=== PATIENT | male | born 1985 | race Caucasian/White ===

== ENCOUNTER 2018-08-25 14:25 | Inpatient (IN) | payer OTHER ==
[2018-08-25] MEDS ORDERED: NS 1,000 ML IV ONE (15:04)
--- NOTE | 2018-08-25 15:15 | EDPHY ---
HPI/HX/ROS/PE/MDM Narrative: CLINICAL IMPRESSION: Abdominal pain, nausea, acute pancreatitis ASSESSMENT/PLAN: Patient is a 32-year-old man with a significant history of alcoholic induced pancreatitis, anxiety, depression and hyperlipidemia who presents today with epigastric pain, similar to previous episodes of acute pancreatitis. Patient is afebrile, in mild distress however not toxic appearing. His abdomen was soft with tenderness in the epigastrium without rebound or guarding; no peritoneal signs or evidence of surgical abdomen. CBC revealed mild leukocytosis , his vital signs were reviewed and he was mildly tachycardic on arrival however do not suspect sepsis or serious bacterial illness. BMP revealed no significant metabolic abnormality or evidence of acute kidney injury. Lipase and hepatic panel revealed elevated lipase at 1700 And mildly elevated ALT and AST consistent with alcohol use. History and physical examination is most consistent with acute pancreatitis. There were no clinical findings to suggest other etiologies to include acute appendicitis, cholecystitis, kidney stone, bowel obstruction, ACS, perforated viscus, diverticulitis, testicular torsion, epididymitis or additional emergent intra-abdominal process. He was given IV fluids, Zofran and Dilaudid with improvement of his symptoms. On repeat examination the patient is much more comfortable appearing, his abdomen remained soft with mild tenderness in the epigastrium, no evidence of a surgical abdomen. The patient will be admitted to the hospitalist service for further observation and management, I spoke directly to Dr. Samuel who will be the admitting physician. The patient remained hemodynamically stable and pain controlled while in the ED. DIFFERENTIAL DX: Abdominal pain including but not limited to appendicitis, cholecystitis, gastritis and urinary tract infection. ED PROCEDURES: None ED COURSE: 3:25 p.m.: Case discussed with Dr. Juárez CHIEF COMPLAINT: Abdominal pain, nausea HPI: Patient is a 32-year-old man with significant history of alcohol-induced pancreatitis who presents with epigastric pain similar to episodes that he has had in the past. Patient reports last evening at approximately 11:00 p.m. He started to develop some epigastric abdominal pain, it has been sharp and constant. Patient does get a little relief when he bends forward. Patient with significant history of 2 admissions for alcohol-induced pancreatitis, last 1 this past March. Patient has been drinking however reportedly minimally and last 2 days prior. Denies any drug use. He denies any fevers, chills, chest pain, urinary symptoms or change in bowel habits. He has had no testicular pain or swelling. He does have constant low-grade nausea however has had no vomiting. Feels that when the pain is most intense it takes his breath away. PMH: Pancreatitis, anxiety, depression and hyperlipidemia Pertinent Past Surgical History: No history of abdominal surgeries Family History: Noncontributory Social History: Occasional EtOH, denies illicit drug use. REVIEW OF SYSTEMS: All other systems negative Constitutional: Decreased appetite: No fever, no chills. Eyes: No discharge, vision change ENT: No sore throat, congestion, ear pain. Cardiovascular: No chest pain, no palpitations. Respiratory: No cough, no shortness of breath. Gastrointestinal: Nausea, abdominal pain; No vomiting, diarrhea. Genitourinary: No hematuria, dysuria, flank pain, pelvic pain Musculoskeletal: No back pain, joint swelling, joint pain, myalgias. Skin: No rashes, color change. Neurological: No headache, dizziness, weakness. PHYSICAL EXAM: General Appearance: Alert, oriented, appropriate, cooperative, NAD, well hydrated, non-toxic appearing, VSS, no hypoxia. HEENT: TMs are clear bilaterally no perforation or FB, no injection, no evidence of serous or mucopurulent otitis. Oropharynx clear is no erythema or exudates, no tonsillar hypertrophy or asymmetry. Dentition without abnormality. Eyes: PERRLA, no acute vision change, nystagmus, swelling, discharge, pain or photosensitivity. Conjunctiva pink, no pallor or injection Neck: Supple, nontender, no lymphadenopathy, no midline pain, FROM, no meningismus. Respiratory: There are no retractions, lungs are clear to auscultation. Cardiac: Regular rate and rhythm, no murmurs or gallops. Gastrointestinal: Patient's abdomen is soft and nondistended, he is tender in the epigastrium without rebound or guarding. Bowel sounds are present. No masses/hernia, no rigidity, guarding or focal peritoneal findings. Neurological: Alert and oriented x 3, CN 2-12 grossly intact, normal gait no ataxia, DTR's intact, normal sensation and strength Skin: Warm, dry, no rashes, no nodules on palpation. Musculoskeletal: Extremities are symmetrical, full range of motion, no tenderness, deformity, swelling, or erythema. Psychiatric: Patient is oriented X 3, there is no agitation. MEDICAL DECISION MAKING: Patient was seen independently. Secondary supervising physician at time of evaluation was Dr. Juárez. Diagnosis: Acute pancreatitis. New, requires workup Summary: See Assessment and Plan for summary of ED visit Clinical lab tests: ordered / reviewed. Independent visualization of images, tracing, or specimens: Yes. Decision to obtain medical records or history from someone other than the patient: None available Review / Summarize previous medical records: None available Discussed patient with another provider: Yes, Dr. Juárez and Dr. Samuel Patient Progress: Improved. (Yolie Marks) ED Course: This patient was seen and examined by me. He presents with epigastric pain and nausea, with an elevated lipase. Clinical presentation consistent with acute pancreatitis. Abdominal exam is soft, with mild epigastric tenderness and no peritoneal signs. I agree with Janelle's assessment and plan. (Ester Juárez) MDM: Differential diagnosis includes though it is not limited to appendicitis, cholecystitis, diverticulitis, pyelonephritis, bowel perforation, small bowel obstruction. (Ester Juárez) - Data Points Laboratory Results: Laboratory Results 08/25/18 15:05 08/25/18 15:05 08/25/18 08/25/18 15:05 15:05 WBC 11.44 10^3/uL H 10^3/uL (3.80-9.50) RBC 5.19 10^6/uL 10^6/uL (4.40-6.38) Hgb 17.0 g/dL g/dL (13.7-17.5) Hct 47.5 % % (40.0-51.0) MCV 91.5 fL fL (81.5-99.8) MCH 32.8 pg pg (27.9-34.1) MCHC 35.8 g/dL g/dL (32.4-36.7) RDW 11.9 % % (11.5-15.2) Plt Count 241 10^3/uL 10^3/uL (150-400) MPV 8.3 fL L fL (8.7-11.7) Neut % (Auto) 78.0 % H % (39.3-74.2) Lymph % (Auto) 12.7 % L % (15.0-45.0) [place] % (Auto) 8.4 % % (4.5-13.0) Eos % (Auto) 0.1 % L % (0.6-7.6) Baso % (Auto) 0.5 % % (0.3-1.7) Nucleat RBC Rel Count 0.0 % % (0.0-0.2) Absolute Neuts (auto) 8.92 10^3/uL H 10^3/uL (1.70-6.50) Absolute Lymphs (auto) 1.45 10^3/uL 10^3/uL (1.00-3.00) Absolute Monos (auto) 0.96 10^3/uL H 10^3/uL (0.30-0.80) Absolute Eos (auto) 0.01 10^3/uL L 10^3/uL (0.03-0.40) Absolute Basos (auto) 0.06 10^3/uL 10^3/uL (0.02-0.10) Absolute Nucleated RBC 0.00 10^3/uL 10^3/uL (0-0.01) Immature Gran % 0.3 % % (0.0-1.1) Immature Gran # 0.04 10^3/uL 10^3/uL (0.00-0.10) Sodium 138 mEq/L mEq/L (135-145) Potassium 3.9 mEq/L mEq/L (3.5-5.2) Chloride 103 mEq/L mEq/L (97-110) Carbon Dioxide 23 mEq/l mEq/l (22-31) Anion Gap 12 mEq/L mEq/L (6-14) BUN 12 mg/dL mg/dL (7-23) Creatinine 0.9 mg/dL mg/dL (0.7-1.3) Estimated GFR > 60 Glucose 85 mg/dL mg/dL (70-100) Calcium 9.5 mg/dL mg/dL (8.5-10.4) Total Bilirubin 0.8 mg/dL mg/dL (0.1-1.4) Conjugated Bilirubin 0.3 mg/dL mg/dL (0.0-0.5) Unconjugated Bilirubin 0.5 mg/dL mg/dL (0.0-1.1) AST 91 IU/L H IU/L (17-59) ALT 104 IU/L H IU/L (21-72) Alkaline Phosphatase 89 IU/L IU/L (38-126) Total Protein 7.6 g/dL g/dL (6.3-8.2) Albumin 4.7 g/dL g/dL (3.5-5.0) Lipase 1716 IU/L H IU/L (23-300) Medications Given: Ondansetron HCl (Zofran) 4 mg IVP Q4 PRN PRN Reason: Nausea/Vomiting, Can't Take PO Stop: 02/21/19 15:19 Last Admin: 08/25/18 15:25 Dose: 4 mg Discontinued Medications Hydromorphone HCl (Dilaudid) 0.5 mg IVP EDNOW ONE Stop: 08/25/18 15:21 Last Admin: 08/25/18 15:25 Dose: 0.5 mg Hydromorphone HCl (Dilaudid) 0.5 mg IVP ONCE ONE Stop: 08/25/18 15:54 Last Admin: 08/25/18 15:55 Dose: 0.5 mg Sodium Chloride (Ns) 1,000 mls @ 0 mls/hr IV ONCE ONE PRN Reason: Wide Open Stop: 08/25/18 15:05 Last Admin: 08/25/18 15:25 Dose: 1,000 mls General Time Seen by Provider: 08/25/18 15:01 Initial Vital Signs: Initial Vital Signs Temperature (C) 97.0 C H 08/25/18 14:30 Heart Rate 104 H 08/25/18 14:30 Respiratory Rate 18 08/25/18 14:30 Blood Pressure 133/89 H 08/25/18 14:30 O2 Sat (%) 97 08/25/18 14:30 O2 Delivery Mode Room Air Allergies/Adverse Reactions: No Known Allergies Allergy (Verified 08/25/18 17:00) Home Medications: Medication Instructions Recorded ARIPiprazole [Abilify 10 mg (*)] 15 mg PO DAILY@182908/25/18 Atorvastatin Calcium [Lipitor 20 20 mg PO DAILY@182908/25/18 mg (*)] Gabapentin [Neurontin 100 MG (*)] 100 mg PO BID@08/25/18 Lisdexamfetamine Dimesylate 60 mg PO DAILY 08/25/18 [Vyvanse] Metoprolol Tartrate [Lopressor 25 25 mg PO BID@,182908/25/18 mg (*)] Mirtazapine [Remeron soltab 15 mg 15 mg PO DAILY@182908/25/18 (*)] buPROPion XL [Wellbutrin Xl] 150 mg PO DAILY 08/25/18 lamoTRIgine [LamICTAL 100 MG (*)] 200 mg PO DAILY@182908/25/18 Departure - Departure Disposition: [facility]
[2018-08-25] MEDS ORDERED: HYDROmorphONE/DILAUDID 2 MG/ML INJ IVP ONE (15:20)
[2018-08-25] MEDS ORDERED: ONDANSETRON 4 MG/2 ML VIAL IVP PRN ×2 (15:20→16:41)
[2018-08-25 15:23] LABS: PLATELET COUNT 241 10^3/uL (150-400)
[2018-08-25] MEDS ORDERED: HYDROmorphONE/DILAUDID 1 MG/ML INJ IVP ONE (15:53)
[2018-08-25] MEDS ORDERED: ACETAMINOPHEN 325 MG TAB PO PRN (16:41)
[2018-08-25] MEDS ORDERED: fentaNYL 100 MCG/2 ML INJ IVP ONE (16:42)
--- NOTE | 2018-08-25 17:01 | PDGENHP ---
<Marion Thakur - Last Filed: 08/25/18 19:05> History and Physical - Chief Complaint Epigastric pain - History of Present Illness 32 y/o male presents with epigastric pain that he reports is similar to what he experienced with his past pancreatitis. He reports drinking heavily (8-9 beers ) Thursday night. He did not drink yesterday and late yesterday night, he reports the onset of epigastric pain with acid reflux. He had difficulty sleeping and by this morning, the pain had worsened to be 10/10 pain. Endorses nausea, unable to eat. Denies vomiting, fevers, chills, diarrhea. Endorses BUQ tenderness, no guarding, no rebound. Lipase 1716, AST/ALT: 91/104. He is being admitted to obs for further monitoring of acute pancreatitis. Past Medical/Surgery History 1. Hx of pancreatitis (first one August 2017, second one March 2018; etoh induced pancreatitis) 2. Anxiety 3. Depression 4. Hyperlipidemia 5. Hypertension 6. ADHD 7. Bipolar Disease Social 1. Drinks 8-9 beers at least 3x per week. Denies illicit drug use. Social smoker 1-2 cigarettes/day. 2. Lives in [place] and is here in [place] for a 2 week work contract. 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. Vital Signs 133/89 104 HR 18 Respirations 97% RA 97.0F History Information - Allergies/Home Medication List Allergies/Adverse Reactions: No Known Allergies Allergy (Verified 08/25/18 17:00) Home Medications: ARIPiprazole [Abilify 10 mg (*)] 15 mg PO DAILY@182908/25/18 [Last Taken ] Atorvastatin Calcium [Lipitor 20 mg (*)] 20 mg PO DAILY@182908/25/18 [Last Taken 08/24/18] Gabapentin [Neurontin 100 MG (*)] 100 mg PO BID@08/25/18 [Last Taken 08/31 AM DOSE] Lisdexamfetamine Dimesylate [Vyvanse] 60 mg PO DAILY 08/25/18 [Last Taken ] Metoprolol Tartrate [Lopressor 25 mg (*)] 25 mg PO BID@08/25/18 [Last Taken 08/25/18 AM DOS] Mirtazapine [Remeron soltab 15 mg (*)] 15 mg PO DAILY@1830 08/25/18 [Last Taken 08/24/18] buPROPion XL [Wellbutrin Xl] 150 mg PO DAILY 08/25/18 [Last Taken 08/25/18] lamoTRIgine [LamICTAL 100 MG (*)] 200 mg PO DAILY@1830 08/25/18 [Last Taken 08/01] I have personally reviewed and updated: family history, medical history, social history, surgical history Past Medical History: See HPI List - Surgical History Additional surgical history: See HPI list - Social History Smoking Status: Current some day smoker Tobacco Use: Cigarettes Alcohol Use: Heavy Drug Use: None Review of Systems Review of Systems: ROS: 10pt was reviewed & negative except for what was stated in HPI & below Constitutional: Reports: malaise EENMT: Reports: no symptoms Cardiac: Reports: no symptoms Respiratory: Reports: no symptoms Gastrointestinal: Reports: abdominal pain, nausea, other (Acid reflux) Genitourinary: Reports: no symptoms Muscolosketal: Reports: no symptoms Skin: Reports: no symptoms Neurological: Reports: other (Currently on medications which he reports is helping) Hematologic/Lymphatic: Reports: no symptoms Immunologic/Allergy: Reports: no symptoms Physical Exam Physical Exam: Lab data was reviewed WBC: 11.44 AST/ALT: 91/104 Lipase: 1716 Temp Pulse Resp BP Pulse Ox 97.0 C H 110 H 18 160/96 H 93 08/25/18 14:30 08/25/18 16:46 08/25/18 16:46 08/25/18 16:46 08/25/18 16:46 Constitutional: no apparent distress, appears nourished, other (Pleasant cooperative patient) Eyes: PERRL, anicteric sclera, EOMI Ears, Nose, Mouth, Throat: moist mucous membranes, hearing normal, ears appear normal, no oral mucosal ulcers Cardiovascular: regular rate and rhythym, no murmur, rub, or gallop, tachycardia , No edema Peripheral Pulses: 2+: dorsalis-pedis (R) (Radial 2+), dorsalis-pedis (L) ( Radial 2+) Respiratory: no respiratory distress, no rales or rhonchi, clear to auscultation Gastrointestinal: normoactive bowel sounds, tenderness, other (soft abdomen, tender epigastric ) Genitourinary: no bladder fullness, no bladder tenderness Skin: warm, normal color, no rashes or abrasions, no fluctuance, no induration, No mottled Musculoskeletal: full muscle strength, no muscle tenderness, normal joint ROM, no joint effusions Neurologic: AAOx3, sensation intact bilaterally, CN II-XII Intact, other (Hand tremors) Psychiatric: interacting appropriately, not anxious, not encephalopathic, thought process linear Lymph, Heme, Immunologic: no cervical LAD, no supraclavicular LAD Lab Data & Imaging Review 08/25/18 15:05 08/25/18 15:05 WBC 11.44 10^3/uL (3.80-9.50) H 08/25/18 15:05 RBC 5.19 10^6/uL (4.40-6.38) 08/25/18 15:05 Hgb 17.0 g/dL (13.7-17.5) 08/25/18 15:05 Hct 47.5 % (40.0-51.0) 08/25/18 15:05 MCV 91.5 fL (81.5-99.8) 08/25/18 15:05 MCH 32.8 pg (27.9-34.1) 08/25/18 15:05 MCHC 35.8 g/dL (32.4-36.7) 08/25/18 15:05 RDW 11.9 % (11.5-15.2) 08/25/18 15:05 Plt Count 241 10^3/uL (150-400) 08/25/18 15:05 MPV 8.3 fL (8.7-11.7) L 08/25/18 15:05 Neut % (Auto) 78.0 % (39.3-74.2) H 08/25/18 15:05 Lymph % (Auto) 12.7 % (15.0-45.0) L 08/25/18 15:05 [place] % (Auto) 8.4 % (4.5-13.0) 08/25/18 15:05 Eos % (Auto) 0.1 % (0.6-7.6) L 08/25/18 15:05 Baso % (Auto) 0.5 % (0.3-1.7) 08/25/18 15:05 Nucleat RBC Rel Count 0.0 % (0.0-0.2) 08/25/18 15:05 Absolute Neuts (auto) 8.92 10^3/uL (1.70-6.50) H 08/25/18 15:05 Absolute Lymphs (auto) 1.45 10^3/uL (1.00-3.00) 08/25/18 15:05 Absolute Monos (auto) 0.96 10^3/uL (0.30-0.80) H 08/25/18 15:05 Absolute Eos (auto) 0.01 10^3/uL (0.03-0.40) L 08/25/18 15:05 Absolute Basos (auto) 0.06 10^3/uL (0.02-0.10) 08/25/18 15:05 Absolute Nucleated RBC 0.00 10^3/uL (0-0.01) 08/25/18 15:05 Immature Gran % 0.3 % (0.0-1.1) 08/25/18 15:05 Immature Gran # 0.04 10^3/uL (0.00-0.10) 08/25/18 15:05 Sodium 138 mEq/L (135-145) 08/25/18 15:05 Potassium 3.9 mEq/L (3.5-5.2) 08/25/18 15:05 Chloride 103 mEq/L (97-110) 08/25/18 15:05 Carbon Dioxide 23 mEq/l (22-31) 08/25/18 15:05 Anion Gap 12 mEq/L (6-14) 08/25/18 15:05 BUN 12 mg/dL (7-23) 08/25/18 15:05 Creatinine 0.9 mg/dL (0.7-1.3) 08/25/18 15:05 Estimated GFR > 60 08/25/18 15:05 Glucose 85 mg/dL (70-100) 08/25/18 15:05 Calcium 9.5 mg/dL (8.5-10.4) 08/25/18 15:05 Total Bilirubin 0.8 mg/dL (0.1-1.4) 08/25/18 15:05 Conjugated Bilirubin 0.3 mg/dL (0.0-0.5) 08/25/18 15:05 Unconjugated Bilirubin 0.5 mg/dL (0.0-1.1) 08/25/18 15:05 AST 91 IU/L (17-59) H 08/25/18 15:05 ALT 104 IU/L (21-72) H 08/25/18 15:05 Alkaline Phosphatase 89 IU/L (38-126) 08/25/18 15:05 Total Protein 7.6 g/dL (6.3-8.2) 08/25/18 15:05 Albumin 4.7 g/dL (3.5-5.0) 08/25/18 15:05 Lipase 1716 IU/L (23-300) H 08/25/18 15:05 Assessment & Plan Plan: 1. Acute pancreatitis: lipase 1716, most likely etoh induced AST/ALT 91/104. Leukocytosis 11.44 suspect acute inflammatory response + tachycardia. -IV NS -NPO status -Pain management PO/IVP PRN -Anti-emetics PRN -CBC/CMP/lipase tomorrow -Pantoprazole IVP 2. Alcohol withdrawal: appears tremulous, his last drink was Thursday night and he drank heavily (8-9 beers). He is tachycardic which could be from his acute pancreatitis or possible withdrawing. -Counseled pt on the importance of etoh cessation. He verbalized understanding and wants to at least decrease the amount of alcohol intake. -CIWA scale -Ativan PRN -Bolus Thiamine + PO thiamine -Folic acid PO -Continue to monitor HR 3. Bipolar disease: May continue abilify, lamotrigine 4. Depression: May continue bupropion, gabapentin, mirtazapine 5. ADHD: may continue lisdexamfetamine 6. Hypertension: stable and may continue metoprolol 7. Hyperlipidemia: holding atorvastatin for now Diet: NPO VTE ppx: SCDs Code: Full Dispo: Admit to obs <JorgealissaKrupa merida - Last Filed: 08/25/18 22:02> History and Physical - History of Present Illness Review of Systems Review of Systems: Physical Exam Physical Exam: Temp Pulse Resp BP Pulse Ox 36.4 C 95 16 128/97 H 93 08/25/18 19:28 08/25/18 20:00 08/25/18 19:28 08/25/18 20:00 08/25/18 19:28 Lab Data & Imaging Review 08/25/18 15:05 08/25/18 15:05 WBC 11.44 10^3/uL (3.80-9.50) H 08/25/18 15:05 RBC 5.19 10^6/uL (4.40-6.38) 08/25/18 15:05 Hgb 17.0 g/dL (13.7-17.5) 08/25/18 15:05 Hct 47.5 % (40.0-51.0) 08/25/18 15:05 MCV 91.5 fL (81.5-99.8) 08/25/18 15:05 MCH 32.8 pg (27.9-34.1) 08/25/18 15:05 MCHC 35.8 g/dL (32.4-36.7) 08/25/18 15:05 RDW 11.9 % (11.5-15.2) 08/25/18 15:05 Plt Count 241 10^3/uL (150-400) 08/25/18 15:05 MPV 8.3 fL (8.7-11.7) L 08/25/18 15:05 Neut % (Auto) 78.0 % (39.3-74.2) H 08/25/18 15:05 Lymph % (Auto) 12.7 % (15.0-45.0) L 08/25/18 15:05 [place] % (Auto) 8.4 % (4.5-13.0) 08/25/18 15:05 Eos % (Auto) 0.1 % (0.6-7.6) L 08/25/18 15:05 Baso % (Auto) 0.5 % (0.3-1.7) 08/25/18 15:05 Nucleat RBC Rel Count 0.0 % (0.0-0.2) 08/25/18 15:05 Absolute Neuts (auto) 8.92 10^3/uL (1.70-6.50) H 08/25/18 15:05 Absolute Lymphs (auto) 1.45 10^3/uL (1.00-3.00) 08/25/18 15:05 Absolute Monos (auto) 0.96 10^3/uL (0.30-0.80) H 08/25/18 15:05 Absolute Eos (auto) 0.01 10^3/uL (0.03-0.40) L 08/25/18 15:05 Absolute Basos (auto) 0.06 10^3/uL (0.02-0.10) 08/25/18 15:05 Absolute Nucleated RBC 0.00 10^3/uL (0-0.01) 08/25/18 15:05 Immature Gran % 0.3 % (0.0-1.1) 08/25/18 15:05 Immature Gran # 0.04 10^3/uL (0.00-0.10) 08/25/18 15:05 Sodium 138 mEq/L (135-145) 08/25/18 15:05 Potassium 3.9 mEq/L (3.5-5.2) 08/25/18 15:05 Chloride 103 mEq/L (97-110) 08/25/18 15:05 Carbon Dioxide 23 mEq/l (22-31) 08/25/18 15:05 Anion Gap 12 mEq/L (6-14) 08/25/18 15:05 BUN 12 mg/dL (7-23) 08/25/18 15:05 Creatinine 0.9 mg/dL (0.7-1.3) 08/25/18 15:05 Estimated GFR > 60 08/25/18 15:05 Glucose 85 mg/dL (70-100) 08/25/18 15:05 Calcium 9.5 mg/dL (8.5-10.4) 08/25/18 15:05 Total Bilirubin 0.8 mg/dL (0.1-1.4) 08/25/18 15:05 Conjugated Bilirubin 0.3 mg/dL (0.0-0.5) 08/25/18 15:05 Unconjugated Bilirubin 0.5 mg/dL (0.0-1.1) 08/25/18 15:05 AST 91 IU/L (17-59) H 08/25/18 15:05 ALT 104 IU/L (21-72) H 08/25/18 15:05 Alkaline Phosphatase 89 IU/L (38-126) 08/25/18 15:05 Total Protein 7.6 g/dL (6.3-8.2) 08/25/18 15:05 Albumin 4.7 g/dL (3.5-5.0) 08/25/18 15:05 Lipase 1716 IU/L (23-300) H 08/25/18 15:05 Assessment & Plan Plan: Patient seen and evaluated separately, care plan reviewed with ALBERT Thakur. Agree with her plan as outlined above. please see separate note for further details
[2018-08-25] MEDS ORDERED: FLUMAZENIL 0.5 MG/5 ML MDV IVP PRN (17:22)
[2018-08-25] MEDS ORDERED: LORazepam 2 MG/ML INJ IVP ONE (17:24)
[2018-08-25] MEDS: PANTOPRAZOLE SODIUM 40 MG VIAL IVP SCH (17:28)
[2018-08-25] MEDS: NS 1,000 ML IV SCH (18:07)
[2018-08-25] MEDS: THIAMINE HCL 500 MG in NS 100 ML IV SCH (18:23)
[2018-08-25] MEDS: oxyCODONE IR 5 MG TAB PO PRN ×2 (19:13→22:35)
[2018-08-25] MEDS: lamoTRIgine 100 MG TAB PO SCH (19:59)
[2018-08-25] MEDS: METOPROLOL TARTRATE 25 MG TAB PO SCH (20:00)
[2018-08-25] MEDS: ARIPiprazole 10 MG TAB PO SCH (20:00)
[2018-08-25] MEDS: GABAPENTIN 100 MG CAP PO SCH ×3 (20:00→23:05)
[2018-08-25] MEDS: MIRTAZAPINE 15 MG ODTAB PO SCH (20:01)
--- NOTE | 2018-08-25 22:06 | HOSPPROG ---
Hospitalist Progress Note Assessment/Plan: 32 yo M with hx of etoh use disorder as well as prior bouts of alcoholic pancreatitis presenting with abd pain c/w pancreatitis # acute pancreatitis: in the setting of history of heavy etoh use with several prior bouts. Lipase of 1700 on arrival. Patient notes he has about 9 drinks 2 nights ago. Will treat conservatively with bowel rest, IVF, prn antiemetics and pain medications. Discussed need to quit drinking as next. # alcohol use disorder and withdrawal: with hx of heavy etoh use and hx of withdrawal in the past though he states never severe withdrawal, currently tremulous and with tongue fasciculations concerning for withdrawal. started on ciwa, will monitor. Discussed importance of cessation at length. # mild transaminitis: mild and likely due to alcoholic hepatitis though alt > ast, will repeat lfts in am # observation status Patient new to my care. Old records reviewed and summarized as above. Care plan reviewed with ER doctor and ALBERT Thakur, please see her H&P for further details. Objective: Vital Signs Temp Pulse Resp BP Pulse Ox 36.4 C 95 16 128/97 H 93 08/25/18 19:28 08/25/18 20:00 08/25/18 19:28 08/25/18 20:00 08/25/18 19:28 ICD10 Worksheet Patient Problems: Problems Problem Status Onset Pancreatitis Acute - ICD10 Problem Qualifiers (1) Pancreatitis
[2018-08-26] MEDS: oxyCODONE IR 5 MG TAB PO PRN ×5 (01:57→15:01)
[2018-08-26] MEDS: HYDROmorphONE/DILAUDID 1 MG/ML INJ IVP PRN ×3 (03:01→07:45)
[2018-08-26] MEDS: NS 1,000 ML IV SCH (03:02)
[2018-08-26] MEDS: ONDANSETRON DISINTEGRATING 4 MG TAB PO PRN ×2 (03:02→07:30)
[2018-08-26 05:25] LABS: PLATELET COUNT 193 10^3/uL (150-400)
[2018-08-26] MEDS ORDERED: LORazepam 2 MG/ML INJ IVP ONE (06:54)
[2018-08-26] MEDS: METOPROLOL TARTRATE 25 MG TAB PO SCH ×2 (07:51→18:31)
[2018-08-26] MEDS: GABAPENTIN 100 MG CAP PO SCH ×2 (07:51→18:33)
[2018-08-26] MEDS: THIAMINE HCL 500 MG in NS 100 ML IV SCH (08:01)
[2018-08-26] MEDS ORDERED: Lisdexamfetamine Dimesylate [Vyvanse] 60 MG PO SCH (09:00)
[2018-08-26] MEDS: LR 1,000 ML IV SCH ×2 (09:01→16:11)
[2018-08-26] MEDS: LORazepam 2 MG/ML INJ IVP PRN ×3 (11:17→23:57)
[2018-08-26] MEDS: FOLIC ACID 1 MG TAB PO SCH (11:18)
[2018-08-26] MEDS: buPROPion XL 150 MG TAB PO SCH (11:18)
[2018-08-26] MEDS: PANTOPRAZOLE SODIUM 40 MG VIAL IVP SCH (11:18)
[2018-08-26] MEDS: MULTIVITAMINS 1 EACH TAB PO SCH (11:18)
[2018-08-26] MEDS ORDERED: NS 500 ML IV ONE (13:36)
--- NOTE | 2018-08-26 14:29 | ASMTCMCOM ---
CM Note CM Note Notes: Pt is a 32 y/o man admitted for abdominal pain and hx of pancreatitis. CM met w/ pt for dispo planning. Pt is here on a work assignment. Pt plans on going back to [place] tomorrow. Pt reports that he has resources he can follow through w/. Pt was sedated and drowsy when I met w/ him. No other needs at this time. CM available for changes. Plan: Independent Date Signed: 08/26/2018 02:29 PM Electronically Signed By:OTIS Blankenship
--- NOTE | 2018-08-26 14:46 | HOSPPROG ---
Hospitalist Progress Note Assessment/Plan: acute pancreatitis- BISAP of 1, lower risk. patient still has tachycardia, but pressure remains normal. lactate WNL. labs all remain normal except lipase ezekiel overnight. abdomen still soft. -continue aggressive fluids, change to LR -pain control -NPO Etoh- patients last drink 48 hours prior to admission, high likelihood of withdrawal. on [facility] protocol. Has some hypertension and tachycardia. -[facility] protocol -fluids -ativan -thiamine, folic acid HTN- on lopressor cont ADHD- hold vivanse Depression- on wellbutrin, neurontin and remron Bipolar- cont abilify and lamictal HLD- Hold statin PPX- SCDs, Fluids- LR at 150 Lytes- WNL Nutrition- NPO Cor- Full Dispo- will change to inpatient. Subjective: patient says pain was 11 last night and now down to an 8. No NV, wants ice chips. no bm in 2 days Objective: Vital Signs Temp Pulse Resp BP Pulse Ox 36.8 C 123 H 16 132/101 H 90 L 08/26/18 11:51 08/26/18 11:51 08/26/18 11:51 08/26/18 11:51 08/26/18 11:51 Laboratory Results 08/26/18 04:53 08/26/18 04:53 - Physical Exam Constitutional: no apparent distress, appears nourished, not in pain Eyes: PERRL, anicteric sclera, EOMI Ears, Nose, Mouth, Throat: moist mucous membranes, hearing normal, ears appear normal, no oral mucosal ulcers Cardiovascular: regular rate and rhythym, no murmur, rub, or gallop Respiratory: no respiratory distress, no rales or rhonchi, clear to auscultation Gastrointestinal: normoactive bowel sounds, soft, non-tender abdomen, no palpable masses Genitourinary: no bladder fullness, no bladder tenderness, no renal bruits Skin: no rashes or abrasions, no fluctuance, no induration Musculoskeletal: full muscle strength, no muscle tenderness, normal joint ROM Neurologic: AAOx3, sensation intact bilaterally Psychiatric: interacting appropriately, not anxious, not encephalopathic, thought process linear Lymph, Heme, Immunologic: no cervical LAD, no supraclavicular LAD ICD10 Worksheet Patient Problems: Problems Problem Status Onset Pancreatitis Acute
--- NOTE | 2018-08-26 15:41 | PDMN ---
Medical Necessity Medical necessity: MCG M250 pancreatitis: pt status changed to INPT 08/25/18 for ongoing med nec. further monitoring and tx of pancreatitis req pt to be NPO for > 24 hours, lipase elevated ovn., 171, 3903 . pt also with ETOH use- high likelihood of W/D,
[2018-08-26] MEDS ORDERED: METOPROLOL TARTRATE 5 MG/5 ML INJ IVP ONE (16:14)
[2018-08-26] MEDS: MIRTAZAPINE 15 MG ODTAB PO SCH (18:25)
[2018-08-26] MEDS: ARIPiprazole 10 MG TAB PO SCH (18:31)
[2018-08-26] MEDS: lamoTRIgine 100 MG TAB PO SCH (18:33)
[2018-08-27] MEDS: LR 1,000 ML IV SCH ×2 (00:39→07:37)
[2018-08-27] MEDS: METOPROLOL TARTRATE 25 MG TAB PO SCH ×2 (05:27→18:10)
[2018-08-27] MEDS: GABAPENTIN 100 MG CAP PO SCH ×2 (05:27→18:12)
[2018-08-27] MEDS: THIAMINE HCL 500 MG in NS 100 ML IV SCH (07:43)
[2018-08-27] MEDS: MULTIVITAMINS 1 EACH TAB PO SCH (07:44)
[2018-08-27] MEDS: buPROPion XL 150 MG TAB PO SCH (07:44)
[2018-08-27] MEDS: FOLIC ACID 1 MG TAB PO SCH (07:44)
[2018-08-27] MEDS: PANTOPRAZOLE SODIUM 40 MG VIAL IVP SCH (07:53)
[2018-08-27 12:51] LABS: PLATELET COUNT 169 10^3/uL (150-400)
[2018-08-27] MEDS: LORazepam 2 MG/ML INJ IVP PRN (16:26)
[2018-08-27] MEDS ORDERED: METOPROLOL TARTRATE 5 MG/5 ML INJ IVP ONE (16:40)
[2018-08-27] MEDS ORDERED: NS 500 ML IV ONE (16:42)
[2018-08-27] MEDS: ARIPiprazole 10 MG TAB PO SCH (18:10)
[2018-08-27] MEDS: lamoTRIgine 100 MG TAB PO SCH (18:12)
[2018-08-27] MEDS: MIRTAZAPINE 15 MG ODTAB PO SCH (18:12)
--- NOTE | 2018-08-27 18:15 | HOSPPROG ---
Hospitalist Progress Note Assessment/Plan: acute pancreatitis- BISAP of 1, lower risk. patient still has tachycardia, but pressure remains normal. lactate WNL. labs all remain normal. Lipase trending down. -Continue IVF -pain control -advance to clears today. tolerated fairly well. Etoh- patients last drink 48 hours prior to admission, high likelihood of withdrawal. on [facility] protocol. Has some hypertension and tachycardia. -[facility] protocol -fluids -ativan -thiamine, folic acid HTN- on lopressor cont ADHD- hold vivanse Depression- on wellbutrin, neurontin and remron Bipolar- cont abilify and lamictal HLD- Hold statin PPX- SCDs, Fluids- LR at 150 Lytes- WNL Nutrition- NPO Cor- Full Dispo- inpatient for pancreatitis. Subjective: very tired and fatigued. Gets winded with ambulation. still some ab pain. Objective: Vital Signs Temp Pulse Resp BP Pulse Ox 37.6 C 128 H 16 127/86 H 91 L 08/27/18 15:41 08/27/18 18:10 08/27/18 15:41 08/27/18 18:10 08/27/18 15:41 Laboratory Results 08/27/18 12:45 08/27/18 12:45 08/26/18 08/27/18 08/28/18 05:59 05:59 05:59 Intake Total 4849 Output Total 350 Balance 4849 -350 - Physical Exam Constitutional: no apparent distress, appears nourished, not in pain Eyes: PERRL, anicteric sclera, EOMI Ears, Nose, Mouth, Throat: moist mucous membranes, hearing normal, ears appear normal, no oral mucosal ulcers Cardiovascular: regular rate and rhythym, no murmur, rub, or gallop Respiratory: no respiratory distress, no rales or rhonchi, clear to auscultation Gastrointestinal: normoactive bowel sounds, soft, non-tender abdomen, no palpable masses Genitourinary: no bladder fullness, no bladder tenderness, no renal bruits Skin: no rashes or abrasions, no fluctuance, no induration Musculoskeletal: full muscle strength, no muscle tenderness, normal joint ROM Neurologic: AAOx3, sensation intact bilaterally Psychiatric: interacting appropriately, not anxious, not encephalopathic, thought process linear Lymph, Heme, Immunologic: no cervical LAD, no supraclavicular LAD ICD10 Worksheet Patient Problems: Problems Problem Status Onset Pancreatitis Acute
[2018-08-27] MEDS ORDERED: LR 1,000 ML IV SCH (18:30)
[2018-08-27] MEDS ORDERED: HYDROCODONE/APAP 5/325 TAB PO PRN (20:27)
[2018-08-28] MEDS: METOPROLOL TARTRATE 25 MG TAB PO SCH (06:23)
[2018-08-28] MEDS: GABAPENTIN 100 MG CAP PO SCH (06:24)
[2018-08-28 07:07] VITALS: BP 133/91
[2018-08-28] MEDS ORDERED: IOPAMIDOL (ISOVUE 370) 100 ML BTL IV ONE (08:43)
[2018-08-28] MEDS ORDERED: THIAMINE HCL 100 MG TAB PO SCH (09:00)
[2018-08-28] MEDS: FOLIC ACID 1 MG TAB PO SCH (10:32)
[2018-08-28] MEDS: PANTOPRAZOLE SODIUM 40 MG VIAL IVP SCH (10:32)
[2018-08-28] MEDS: MULTIVITAMINS 1 EACH TAB PO SCH (10:33)
[2018-08-28] MEDS: buPROPion XL 150 MG TAB PO SCH (10:33)
--- NOTE | 2018-08-28 14:32 | PDDCSUM ---
Discharge Summary Discharge Summary: patient is a 32 year old male with pmh of etoh abuse, HTN, HLD, bipolar who was admitted with alcohol pancreatitis. He also appeared to be withdrawing midly from etoh. he was put on fluids and pain medications and monitored along with CIWA monitoring. . On HD day three his diet was advanced, he was able to be taken off of IVF and he no longer was requiring pain medications. He was mildly tachycardic and so a CTA was done to ensure he had no PE. CTA was negative for PE and patient said that he is always mildly tachycardic. he was discharged home in good condition to follow up with his PCP GWENDOLYN MALIK, JENNIE NAVAS, MMM pink and acyanotic. head atraumatic and normocephalic Lungs- CTABL CV- RRR, No MRG Abd- soft NT/ND, no guarding or rebound, normal BS, No organomegally Ext- No CC edema of calf pain skin- no rashes neuro- no focal deficits, CN-2-12 intact psych- mood/affect appropriate
--- NOTE | 2018-08-29 17:18 | CPEKG ---
Test Reason : OPEN Blood Pressure : / mmHG Vent. Rate : 129 BPM Atrial Rate : 129 BPM P-R Int : 138 ms QRS Dur : 093 ms QT Int : 311 ms P-R-T Axes : 034 -11 017 degrees QTc Int : 456 ms Sinus tachycardia Borderline ST elevation, anterior leads Confirmed by Marcell Rangel ([id number]) on 08/29/2018 5:17:37 PM Referred By: Confirmed By:Marcell Rangel
== END 2018-08-28 12:15 | disposition home or self-care (01) | DRG 439 ==
LOC: F3E 18:01 → OBSVTOIN 08-26 15:28
PROVIDERS: ADMIT Internal Medicine; ATTEND Internal Medicine
PROC: HZ2ZZZZ Detoxification Services for Substance Abuse Treatment (ICD-10-PCS; principal; 2018-08-26)
DX: K85.20 Alcohol induced acute pancreatitis without necrosis or infection (principal); F10.239 Alcohol dependence with withdrawal, unspecified; K70.10 Alcoholic hepatitis without ascites; I10 Essential (primary) hypertension; E78.5 Hyperlipidemia, unspecified; F31.9 Bipolar disorder, unspecified; F41.8 Other specified anxiety disorders; F90.9 Attention-deficit hyperactivity disorder, unspecified type; F17.210 Nicotine dependence, cigarettes, uncomplicated; Y90.9 Presence of alcohol in blood, level not specified; R00.0 Tachycardia, unspecified
CPT/HCPCS: 96374; G0378; J1170; J2060; J2405; J3010; J3411; Q9967